=== PATIENT | male | born 1985 | race Caucasian/White ===

== ENCOUNTER 2021-05-05 10:53 | Outpatient (CLI) | payer OTHER, SELFPAY ==
[2021-05-05 11:54] LABS: SARS-CoV-2 RNA PCR Negative (Negative)
== END 2021-05-05 10:54 | disposition home or self-care (01) ==
PROVIDERS: PCP Physician Assistant; Visit Provider Physician Assistant
DX: Z20.822 Contact with and (suspected) exposure to COVID-19 (principal)
CPT/HCPCS: C9803; U0003; U0005

== ENCOUNTER 2024-07-23 07:40 | Outpatient (CLI) | payer OTHER, SELFPAY ==
--- NOTE | ~2024-07-23 | US_ITS ---
Abdominal Sonogram: Real-time sonographic imaging of the abdomen was performed. Clinical History: Abdominal pain Findings: The liver appears heterogeneous, with no evidence of mass lesion or bile duct dilatation. Main portal vein demonstrates normal direction of flow. The spleen is normal in size without evidence of focal lesion. The gallbladder is well distended, and appears normal with no evidence of gallston e or wall thickening. The common bile duct measures 4 mm. The visualized pancreas, aorta, and IVC ar e unremarkable. The right kidney measures 11.6 cm in length and the left kidney measures 11.1 cm. T here is no hydronephrosis or renal calculus. Impression: Heterogeneous hepatic echotexture could reflect fatty infiltration or possibly other chronic liver di sease. Reviewed, dictated and finalized at [facility]. [employer] Impression: Heterogeneous hepatic echotexture could reflect fatty infiltration or possibly other chronic liver disease.
--- OUTSIDE RECORDS SUMMARY | 2024-07-23 07:45 | XMS_ITS | Data Portability ---
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 Plan of Treatment Reminders Order Date Submit Date Provider Last Modified By Organization Details Last Modified Time Details Appointments None recorded . Lab CBC 2020 021 [facility], [address] [facility], [place], [address], 09:14:42 CMP, serum or plasma 2020 021 [facility], [address] [facility], [place], [address], 1 09:14:42 lipid panel, serum 2020 021 [facility], [address] [facility], [place], [address], 1 09:14:43 urinalys is, dipstick 2024 025 sha In-Office Order, Internal Use Only DO Not Attach Compendium DO Not Attach Compendium, Do Not Delete/merge, [id number] 5 11:17:48 CBC 2024 025 [facility], [address] [facility], [place], [address], 5 09:14:35 CMP, serum or plasma 2024 025 [facility], [address] [facility], [place], [address], 5 09:14:33 lipid panel, serum 2024 025 [facility], [address] [facility], [place], [address], 5 09:14:31 HbA1c (hemoglo bin A1c), blood 2024 025 [facility] In-Office Order, Internal Use Only DO Not Attach Compendium DO Not Attach Compendium, Do Not Delete/merge, [id number] 11:37:07 Referral None recorded . Procedures None recorded . Surgeries None recorded . Imaging CT, abdomen, w/o contrast [facility] [address], [place], [address], 5 13:20:08 Medication Orders sumatrip richard 50 mg tablet 2018 019 [facility], [address] [place] [address], [address], 1 12:07:19 Bactrim DS 800 mg-160 mg tablet 2018 019 [facility], [address] [place] [address], [address], 1 12:07:15 Patient TargetsNo targets recorded. Patient Instructions Encounter Date Encounter Id Patient Instructions Last Modified By Organization Details Last Modified Time 05/31/2017 [id number] discussed dietar y advice YOUNG eating. jnanney Not available 05/31/2017 10:40:43 06/28/2018 [id number] skin abscess: care instructions jnanney Not available 06/28/2018 15:26:11 07/18/2020 [id number] pilonidal abscess: care instructions jnann Not available 07/18/2020 13:06:26 06/14/2024 [id number] abdominal strain : rehab exercises jnanney Not available 06/14/2024 11:21:29 A healthy lifestyle: care instructions ey Not available 06/14/2024 11:21:29 frequent urination: care instructions anney Not available 06/14/2024 11:17:47 Reason for Referral None Reported. Results Created Date Observation Date Name Description Value Unit Range Abnormal Flag Note LastModifiedBy Organization Detail LastModifiedTime 05/13/20 17 05/14/2017 CBC WBC 8.1 x10e3 /uL 3.4-10 .8 Not Available [facility] ([facility]) [address] [place], [address], 05/18/2017 19:08:06 05/13/20 17 05/14/2017 CBC RBC 5.09 x10e6 /uL 4.14-5 .80 Not Available [facility] ([facility]) [address] [place], [address], 05/18/2017 19:08:06 05/13/20 17 05/14/2017 CBC hemoglobin 14.6 g/dL 12.6-1 7.7 Eff ectiv e Decem 2016 the refer ence inter rylee for Hemog lobin MALES only will be pirere ing to: Males 13-15 years : 12.6 - 17.7 Males >15 years : 13.0 - 17.7 Not Available [facility] ([facility]) [address] [place], [address], 05/18/2017 19:08:06 05/13/20 17 05/14/2017 CBC hematocrit 42.8 % 37.5-5 1.0 Not Available [facility] ([facility]) [address] [place], [address], 05/18/2017 19:08:06 05/13/20 17 05/14/2017 CBC MCV 84 fL 79-97 Not Available [facility] ([facility]) [address] [facility] [place], [address], 05/18/2017 19:08:06 05/13/20 17 05/14/2017 CBC MCH 28.7 pg 26.6-3 3.0 Not Available [facility] ([facility]) [address] [place], [place], [address], 05/18/2017 19:08:06 05/13/20 17 05/14/2017 CBC MCHC 34.1 g/dL 31.5-3 5.7 Not Available [facility] ([facility]) [address], [place], [address], 05/18/2017 19:08:06 05/13/20 17 05/14/2017 CBC RDW 13.7 % 12.3-1 5.4 Not Available [facility] ([facility]) [address] [facility], [place], [address], 05/18/2017 19:08:06 05/13/20 17 05/14/2017 CBC platelets 223 x10e3 /uL 150-37 9 Not Available [facility] ([facility]) [address] [place], [address], 05/18/2017 19:08:06 05/13/20 17 05/14/2017 CBC neutrophils 68 % not estab. Not Available [facility] ([facility]) [address] [facility], [place], [address], 05/18/2017 19:08:06 05/13/20 17 05/14/2017 CBC lymphs 19 % not estab. Not Available [facility] ([facility]) [address] [place], [address], 05/18/2017 19:08:06 05/13/20 17 05/14/2017 CBC monocytes 11 % not estab. Not Available [facility] ([facility]) [address] [facility] [place], [address], 05/18/2017 19:08:06 05/13/20 17 05/14/2017 CBC eos 2 % not estab. Not Available [facility] ([facility]) [address] [facility] [place], [address], 05/18/2017 19:08:06 05/13/20 17 05/14/2017 CBC basos 0 % not estab. 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 0 Not Available [facility] ([facility]) [address] [facility], [place], [address], 05/18/2017 19:08:06 05/13/20 17 05/14/2017 CBC lymphs (absolute) 1.5 x10e3 /uL 0.7-3. 1 Not Available [facility] ([facility]) [address] [facility], [place], [address], 05/18/2017 19:08:06 05/13/20 17 05/14/2017 CBC monocytes(ab solute) 0.9 x10e3 /uL 0.1-0. 9 Not Available [facility] ([facility]) [address] [place], [address], 05/18/2017 19:08:06 05/13/20 17 05/14/2017 CBC eos (absolute) 0.2 x10e3 /uL 0.0-0. 4 Not Available [facility] ([facility]) [address] [place], [address], 05/18/2017 19:08:06 05/13/20 17 05/14/2017 CBC baso (absolute) 0.0 x10e3 /uL 0.0-0. 2 Not Available [facility] ([facility]) [address] [place], [address], 05/18/2017 19:08:06 05/13/20 17 05/14/2017 CBC immature granulocytes 0 % not estab. Not Available [facility] ([facility]) [address] [place], [address], 05/18/2017 19:08:06 05/13/20 17 05/14/2017 CBC immature grans (abs) 0.0 x10e3 /uL 0.0-0. 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 Not Available [facility] ([facility]) [address] [facility], [place], [address], 05/18/2017 19:08:06 05/13/20 17 05/14/2017 CMP, serum or plasm a glucose, serum 107 mg/dL 65-99 above high normal Not Available [facility] ([facility]) [address] [place], [address], 05/18/2017 19:08:07 05/13/20 17 05/14/2017 CMP, serum or plasm a BUN 16 mg/dL 6-20 Not Available [facility] ([facility]) [address] [place], [address], 05/18/2017 19:08:07 05/13/20 17 05/14/2017 CMP, serum or plasm a creatinine, serum 0.87 mg/dL 0.76-1 .27 Not Available [facility] ([facility]) [address] [facility] [place], [address], 05/18/2017 19:08:07 05/13/20 17 05/14/2017 CMP, serum or plasm a eGFR if nonafricn AM 113 mL/mi n/1.7 3 >59 Not Available [facility] ([facility]) [address] [facility] [place], [address], 05/18/2017 19:08:07 05/13/20 17 05/14/2017 CMP, serum or plasm a eGFR if africn AM 130 mL/mi n/1.7 3 >59 Not Available [facility] ([facility]) [address] [facility], [place], [address], 05/18/2017 19:08:07 05/13/20 17 05/14/2017 CMP, serum or plasm a BUN/creatini ne ratio 18 9-20 Not Available [facility] ([facility]) [address] [place], [address], 05/18/2017 19:08:07 05/13/20 17 05/14/2017 CMP, serum or plasm a sodium, serum 141 mmol/ L 134-14 4 Not Available [facility] ([facility]) [address] [place], [address], 05/18/2017 19:08:07 05/13/20 17 05/14/2017 CMP, serum or plasm a potassium, serum 3.7 mmol/ L 3.5-5. 2 Not Available [facility] ([facility]) [address] [facility] [place], [address], 05/18/2017 19:08:07 05/13/20 17 05/14/2017 CMP, serum or plasm a chloride, serum 100 mmol/ L 96-106 Not Available [facility] ([facility]) [address] [place], [address], 05/18/2017 19:08:07 05/13/20 17 05/14/2017 CMP, serum or plasm a carbon dioxide, total 26 mmol/ L 18-29 Not Available [facility] ([facility]) [address] [facility] [place], [address], 05/18/2017 19:08:07 05/13/20 17 05/14/2017 CMP, serum or plasm a calcium, serum 9.0 mg/dL 8.7-10 .2 Not Available [facility] ([facility]) [address] [place], [address], 05/18/2017 19:08:07 05/13/20 17 05/14/2017 CMP, serum or plasm a protein, total, serum 7.5 g/dL 6.0-8. 5 Not Available [facility] ([facility]) [address] [place], [address], 05/18/2017 19:08:07 05/13/20 17 05/14/2017 CMP, serum or plasm a albumin, serum 4.4 g/dL 3.5-5. 5 Not Available [facility] ([facility]) [address] [place], [address], 05/18/2017 19:08:07 05/13/20 17 05/14/2017 CMP, serum or plasm a globulin, total 3.1 g/dL 1.5-4. 5 Not Available [facility] ([facility]) [address] [place], [address], 05/18/2017 19:08:07 05/13/20 17 05/14/2017 CMP, serum or plasm a A/G ratio 1.4 1.2-2. 2 Not Available [facility] ([facility]) [address] [place], [address], 05/18/2017 19:08:07 05/13/20 17 05/14/2017 CMP, serum or plasm a bilirubin, total 0.3 mg/dL 0.0-1. 2 Not Available [facility] ([facility]) [address] [facility] [place], [address], 05/18/2017 19:08:07 05/13/20 17 05/14/2017 CMP, serum or plasm a alkaline phosphatase, S 76 IU/L 39-117 Not Available [facility] ([facility]) [address] [facility] [place], [address], 05/18/2017 19:08:07 05/13/20 17 05/14/2017 CMP, serum or plasm a AST (SGOT) 24 IU/L 0-40 Not Available [facility] ([facility]) [address] [place], [address], 05/18/2017 19:08:07 05/13/20 17 05/14/2017 CMP, serum or plasm a ALT (SGPT) 27 IU/L 0-44 Not Available [facility] ([facility]) [address] [facility] [place], [address], 05/18/2017 19:08:07 05/13/20 17 05/14/2017 lipid panel , serum cholesterol, total 202 mg/dL 100-19 9 above high normal Not Available [facility] ([facility]) [address] [facility] [place], [address], 05/18/2017 19:08:08 05/13/20 17 05/14/2017 lipid panel , serum triglyceride s 144 mg/dL 0-149 Not Available [facility] ([facility]) [address] [facility] [place], [address], 05/18/2017 19:08:08 05/13/20 17 05/14/2017 lipid panel , serum HDL cholesterol 31 mg/dL >39 below low normal Not Available [facility] ([facility]) [address] [place], [address], 05/18/2017 19:08:08 05/13/20 17 05/14/2017 lipid panel , serum VLDL cholesterol clayton 29 mg/dL 5-40 Not Available [facility] ([facility]) [address] [place], [address], 05/18/2017 19:08:08 05/13/20 17 05/14/2017 lipid panel , serum LDL cholesterol calc 142 mg/dL 0-99 above high normal Not Available [facility] ([facility]) [address] [place], [address], 05/18/2017 19:08:08 05/13/20 17 05/14/2017 lipid panel , 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 6 above high normal LDL/H DL Ratio Men Women 1/2 Avg.R isk 1.0 1.5 Avg.R isk 3.6 3.2 2X Avg.R isk 6.2 5.0 3X Avg.R isk 8.0 6.1 Not Available [facility] ([facility]) [address] [place], [address], 05/18/2017 19:08:08 05/13/20 17 05/18/2017 cultu re, urine urine culture, routine Final report abnormal Not Available [facility] ([facility]) [address] [place], [address], 05/18/2017 19:08:08 05/13/20 17 05/18/2017 cultu re, urine result 1 Escher ichia coli abnormal Great er than 100,0 00 colon y formi ng units per mL Not Available [facility] ([facility]) [address] [place], [address], 05/18/2017 19:08:08 05/13/20 17 05/18/2017 cultu re, urine antimicrobia l susceptibili ty Commen t S = Susce ptibl e; I = Inter media te; R = Resis tant P = Posit zuleika; N = Negat zuleika MICS are expre ssed in micro grams per mL Antib iotic RSLT# 1 RSLT# 2 RSLT# 3 RSLT# 4 Amoxi cilli n/Cla vulan ic Acid S Ampic illin R Cefep mahsa S Ceftr iaxon e S Cefur oxime S Cepha lothi n S Cipro floxa marcy S Ertap enem S Genta micin S Imipe nem S Levof loxac in S Nitro furan toin S Piper acill in R Tetra cycli ne S Tobra mycin S Trime thopr im/Vaughn lfa R Not Available [facility] ([facility]) [address] [place], [address], 05/18/2017 19:08:08 05/13/20 17 05/18/2017 cardi ovasc zac assjoel sment panel , serum interpretati on Note Suppl rowan whittaker t is avail able. Not Available [facility] ([facility]) [address] [place], [address], 05/18/2017 19:08:09 05/13/20 17 05/18/2017 cardi ovasc ulcosme asses sment panel , serum pdf image . Not Available [facility] ([facility]) [address] [place], [address], 05/18/2017 19:08:09 07/18/19 21 07/19/2020 CMP, serum or plasm a glucose 98 mg/dL 65-99 Not Available [facility] ([facility]) [address] [place], [address], 07/19/2020 09:14:42 07/18/19 21 07/19/2020 CMP, serum or plasm a BUN 17 mg/dL 6-20 Not Available [facility] ([facility]) [address] [place], [address], 07/19/2020 09:14:42 07/18/19 21 07/19/2020 CMP, serum or plasm a creatinine 0.83 mg/dL 0.76-1 .27 Not Available [facility] ([facility]) [address] [facility] [place], [address], 07/19/2020 09:14:42 07/18/19 21 07/19/2020 CMP, serum or plasm a eGFR if nonafricn AM 112 mL/mi n/1.7 3 >59 Not Available [facility] ([facility]) [address] [facility] [place], [address], 07/19/2020 09:14:42 07/18/19 21 07/19/2020 CMP, serum or plasm a eGFR if africn AM 130 mL/mi n/1.7 3 >59 Not Available [facility] ([facility]) [address] [place], [address], 07/19/2020 09:14:42 07/18/19 21 07/19/2020 CMP, serum or plasm a BUN/creatini ne ratio 20 9-20 Not Available [facility] ([facility]) [address] [place], [address], 07/19/2020 09:14:42 07/18/1907/19/2020 CMP, serum or plasm a sodium 141 mmol/ L 134-14 4 Not Available [facility] ([facility]) [address] [place], [address], 07/19/2020 09:14:42 07/18/1907/19/2020 CMP, serum or plasm a potassium 4.1 mmol/ L 3.5-5. 2 Not Available [facility] ([facility]) [address] [place], [address], 07/19/2020 09:14:42 07/18/19 07/19/2020 CMP, serum or plasm a chloride 103 mmol/ L 96-106 Not Available [facility] ([facility]) [address] [place], [address], 07/19/2020 09:14:42 07/18/1907/19/2020 CMP, serum or plasm a carbon dioxide, total 25 mmol/ L 20-29 Not Available [facility] ([facility]) [address] [place], [address], 07/19/2020 09:14:42 07/18/19 21 07/19/2020 CMP, serum or plasm a calcium 9.3 mg/dL 8.7-10 .2 Not Available [facility] ([facility]) [address] [place], [address], 07/19/2020 09:14:42 07/18/1907/19/2020 CMP, serum or plasm a protein, total 7.5 g/dL 6.0-8. 5 Not Available [facility] ([facility]) [address] [place], [address], 07/19/2020 09:14:42 07/18/1907/19/2020 CMP, serum or plasm a albumin 4.5 g/dL 4.0-5. 0 Not Available [facility] ([facility]) [address] [place], [address], 07/19/2020 09:14:42 07/18/1907/19/2020 CMP, serum or plasm a globulin, total 3.0 g/dL 1.5-4. 5 Not Available [facility] ([facility]) [address] [place], [address], 07/19/2020 09:14:42 07/18/1907/19/2020 CMP, serum or plasm a A/G ratio 1.5 1.2-2. 2 Not Available [facility] ([facility]) [address] [facility] [place], [address], 07/19/2020 09:14:42 07/18/19 21 07/19/2020 CMP, serum or plasm a bilirubin, total 0.4 mg/dL 0.0-1. 2 Not Available [facility] ([facility]) [address] [facility] [place], [address], 07/19/2020 09:14:42 07/18/19 21 07/19/2020 CMP, serum or plasm a alkaline phosphatase 69 IU/L 39-117 Not Available [facility]) [address] [facility] [place], [address], 07/19/2020 09:14:42 07/18/19 21 07/19/2020 CMP, serum or plasm a AST (SGOT) 23 IU/L 0-40 Not Available [facility] ([facility]) [address] [place], [address], 07/19/2020 09:14:42 07/18/19 21 07/19/2020 CMP, serum or plasm a ALT (SGPT) 25 IU/L 0-44 Not Available [facility] ([facility]) [address] [place], [address], 07/19/2020 09:14:42 07/18/1907/19/2020 CBC WBC 8.4 x10e3 /uL 3.4-10 .8 Not Available [facility] ([facility]) [address] [place], [address], 07/19/2020 09:14:42 07/18/19 21 07/19/2020 CBC RBC 5.54 x10e6 /uL 4.14-5 .80 Not Available [facility] ([facility]) [address] [place], [address], 07/19/2020 09:14:42 07/18/19 21 07/19/2020 CBC hemoglobin 15.9 g/dL 13.0-1 7.7 Not Available [facility] ([facility]) [address] [facility] [place], [address], 07/19/2020 09:14:42 07/18/19 21 07/19/2020 CBC hematocrit 48.1 % 37.5-5 1.0 Not Available [facility] ([facility]) [address] [facility], [place], [address], 07/19/2020 09:14:42 07/18/19 21 07/19/2020 CBC MCV 87 fL 79-97 Not Available [facility] ([facility]) [address] [place], [address], 07/19/2020 09:14:42 07/18/19 21 07/19/2020 CBC MCH 28.7 pg 26.6-3 3.0 Not Available [facility] ([facility]) [address] [place], [address], 07/19/2020 09:14:42 07/18/19 21 07/19/2020 CBC MCHC 33.1 g/dL 31.5-3 5.7 Not Available [facility] ([facility]) [address] [facility], [place], [address], 07/19/2020 09:14:42 07/18/19 21 07/19/2020 CBC RDW 12.5 % 11.6-1 5.4 Not Available [facility] ([facility]) [address] [place], [address], 07/19/2020 09:14:42 07/18/19 21 07/19/2020 CBC platelets 231 x10e3 /uL 150-45 0 Not Available [facility] ([facility]) [address] [place], [address], 07/19/2020 09:14:42 07/18/19 21 07/19/2020 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 Not Available [facility] ([facility]) [address] [facility], [place], [address], 07/19/2020 09:14:42 07/18/19 21 07/19/2020 lipid panel , serum cholesterol, total 187 mg/dL 100-19 9 Not Available [facility] ([facility]) [address] [facility], [place], [address], 07/19/2020 09:14:43 07/18/19 21 07/19/2020 lipid panel , serum triglyceride s 163 mg/dL 0-149 above high normal Not Available [facility] ([facility]) [address] [facility], [place], [address], 07/19/2020 09:14:43 07/18/19 21 07/19/2020 lipid panel , serum HDL cholesterol 34 mg/dL >39 below low normal Not Available [facility] ([facility]) [address] [facility], [place], [address], 07/19/2020 09:14:43 07/18/19 21 07/19/2020 lipid panel , serum VLDL cholesterol clayton 29 mg/dL 5-40 Not Available [facility] ([facility]) [address] [facility], [place], [address], 07/19/2020 09:14:43 07/18/19 21 07/19/2020 lipid panel , serum LDL chol calc ([facility]) 124 mg/dL 0-99 above high normal Not Available [facility] ([facility]) [address] [place], [address], 07/19/2020 09:14:43 07/18/19 21 07/19/2020 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 Pleas e revie w this repor t in its entir ety, since pierre es to dorothy dominguez demog raphi cs may affec t resul t inter preta tion( s) and/o r treat ment/ follo w-up sugge stion s. Suppl ement al repor t is avail able. Not Available [facility] ([facility]) [address] [facility], [place], [address], 07/19/2020 09:14:44 07/18/19 21 07/19/2020 cardi ovasc ular asses sment panel , serum pdf . Not Available [facility] ([facility]) [address] [facility], [place], [address], 07/19/2020 09:14:44 06/14/19 25 06/15/2024 LIPID PANEL cholesterol, total 139 mg/dL 100-19 9 Not Available [address], [address], 06/15/2024 09:14:31 06/14/19 25 06/15/2024 LIPID PANEL triglyceride s 278 mg/dL 0-149 above high normal Not Available [address], [address], 06/15/2024 09:14:31 06/14/19 25 06/15/2024 LIPID PANEL HDL cholesterol 26 mg/dL >39 below low normal Not Available [facility] [address] [place], [address], 06/15/2024 09:14:31 06/14/19 25 06/15/2024 LIPID PANEL VLDL cholesterol clayton 45 mg/dL 5-40 above high normal Not Available [facility] [address] [place], [address], 06/15/2024 09:14:31 06/14/19 25 06/15/2024 LIPID PANEL LDL chol calc ([facility]) 68 mg/dL 0-99 Not Available [address], [address], 06/15/2024 09:14:31 06/14/19 25 06/15/2024 COMP. METAB OLIC PANEL (14) glucose 108 mg/dL 70-99 above high normal Not Available [address], [address], 06/15/2024 09:14:33 06/14/19 25 06/15/2024 COMP. METAB OLIC PANEL (14) BUN 14 mg/dL 6-24 Not Available [address], [address], 06/15/2024 09:14:33 06/14/19 25 06/15/2024 COMP. METAB OLIC PANEL (14) creatinine 0.79 mg/dL 0.76-1 .27 Not Available [address], [address], 06/15/2024 09:14:33 06/14/19 25 06/15/2024 COMP. METAB OLIC PANEL (14) eGFR 114 mL/mi n/1.7 3 >59 Not Available [address], [address], 06/15/2024 09:14:33 06/14/19 25 06/15/2024 COMP. METAB OLIC PANEL (14) BUN/creatini ne ratio 18 9-20 Not Available [address], [address], 06/15/2024 09:14:33 06/14/19 25 06/15/2024 COMP. METAB OLIC PANEL (14) sodium 142 mmol/ L 134-14 4 Not Available [address], [address], 06/15/2024 09:14:33 06/14/19 25 06/15/2024 COMP. METAB OLIC PANEL (14) potassium 4.1 mmol/ L 3.5-5. 2 Not Available [address], [address], 06/15/2024 09:14:33 06/14/19 25 06/15/2024 COMP. METAB OLIC PANEL (14) chloride 103 mmol/ L 96-106 Not Available [address], [address], 06/15/2024 09:14:33 06/14/19 25 06/15/2024 COMP. METAB OLIC PANEL (14) carbon dioxide, total 25 mmol/ L 20-29 Not Available [address], [address], 06/15/2024 09:14:33 06/14/1906/15/2024 COMP. METAB OLIC PANEL (14) calcium 8.6 mg/dL 8.7-10 .2 below low normal Not Available [address], [address], 06/15/2024 09:14:33 06/14/1906/15/2024 COMP. METAB OLIC PANEL (14) protein, total 6.6 g/dL 6.0-8. 5 Not Available [address], [address], 06/15/2024 09:14:33 06/14/1906/15/2024 COMP. METAB OLIC PANEL (14) albumin 4.2 g/dL 4.1-5. 1 Not Available [address], [address], 06/15/2024 09:14:33 06/14/19 25 06/15/2024 COMP. METAB OLIC PANEL (14) globulin, total 2.4 g/dL 1.5-4. 5 Not Available [address], [address], 06/15/2024 09:14:33 06/14/19 25 06/15/2024 COMP. METAB OLIC PANEL (14) bilirubin, total 0.2 mg/dL 0.0-1. 2 Not Available [address], [address], 06/15/2024 09:14:33 06/14/1906/15/2024 COMP. METAB OLIC PANEL (14) alkaline phosphatase 71 IU/L 44-121 Not Available [address], [address], 06/15/2024 09:14:33 06/14/19 25 06/15/2024 COMP. METAB OLIC PANEL (14) AST (SGOT) 28 IU/L 0-40 Not Available [address], [address], 06/15/2024 09:14:33 06/14/19 25 06/15/2024 COMP. METAB OLIC PANEL (14) ALT (SGPT) 31 IU/L 0-44 Not Available [address], [address], 06/15/2024 09:14:33 06/14/1906/15/2024 CARDI NARINDER Epstein interpretati on Note Suppl rowan reese is avail able. Not Available [address], [address], 06/15/2024 09:14:35 01/08/02 2406/15/2024 GOPAL Epstein pdf . Not Available [address], [address], 06/15/2024 09:14:35 06/14/1906/15/2024 CBC, PLATE LET, NO DIFFE RENTI AL WBC 5.5 x10e3 /uL 3.4-10 .8 Not Available [address], [address], 06/15/2024 09:14:35 06/14/1906/15/2024 CBC, PLATE LET, NO DIFFE RENTI AL RBC 5.10 x10e6 /uL 4.14-5 .80 Not Available [address], [address], 06/15/2024 09:14:35 06/14/1906/15/2024 CBC, PLATE LET, NO DIFFE RENTI AL hemoglobin 14.4 g/dL 13.0-1 7.7 Not Available [address], [address], 06/15/2024 09:14:35 06/14/1906/15/2024 CBC, PLATE LET, NO DIFFE RENTI AL hematocrit 44.8 % 37.5-5 1.0 Not Available [address], [address], 06/15/2024 09:14:35 06/14/1906/15/2024 CBC, PLATE LET, NO DIFFE RENTI AL MCV 88 fL 79-97 Not Available [address], [address], 06/15/2024 09:14:35 06/14/1906/15/2024 CBC, PLATE LET, NO DIFFE RENTI AL MCH 28.2 pg 26.6-3 3.0 Not Available [address], [address], 06/15/2024 09:14:35 06/14/1906/15/2024 CBC, PLATE LET, NO DIFFE RENTI AL MCHC 32.1 g/dL 31.5-3 5.7 Not Available [address], [address], 06/15/2024 09:14:35 06/14/19 25 06/15/2024 CBC, PLATE LET, NO DIFFE RENTI AL RDW 12.7 % 11.6-1 5.4 Not Available [address], [address], 06/15/2024 09:14:35 06/14/1906/15/2024 CBC, PLATE LET, NO DIFFE RENTI AL platelets 237 x10e3 /uL 150-45 0 Not Available [address], [address], 06/15/2024 09:14:35 06/14/1906/14/2024 HbA1c (hemo globi n A1c), blood HbA1c 6.0 Not Available In-Office Order Internal Use Only DO Not Attach Compendium DO Not Attach Compendium, Do Not Delete/merge, 06/14/2024 11:22:27 06/14/1906/14/2024 urina lysis , dipst ick Leukocytes Negati ve Not Available In-Office Order Internal Use Only DO Not Attach Compendium DO Not Attach Compendium, Do Not Delete/merge, 06/14/2024 11:06:29 06/14/19 25 06/14/2024 urina lysis , dipst ick Nitrite negati ve Not Available In-Office Order Internal Use Only DO Not Attach Compendium DO Not Attach Compendium, Do Not Delete/merge, 06/14/2024 11:06:29 06/14/19 25 06/14/2024 urina lysis , dipst ick Urobilinogen .2 Not Available In-Of fice Order Internal Use Only DO Not Attach Compendium DO Not Attach Compendium, Do Not Delete/merge, 06/14/2024 11:06:29 06/14/19 25 06/14/2024 urina lysis , dipst ick Protein Negati ve Not Available In-Office Order Internal Use Only DO Not Attach Compendium DO Not Attach Compendium, Do Not Delete/merge, 06/14/2024 11:06:29 06/14/19 25 06/14/2024 urina lysis , dipst ick pH 6.0 Not Available In-Office Order Internal Use Only DO Not Attach Compendium DO Not Attach Compendium, Do Not Delete/merge, 06/14/2024 11:06:29 06/14/19 25 06/14/2024 urina lysis , dipst ick Blood Negati ve Not Available In-Office Order Internal Use Only DO Not Attach Compendium DO Not Attach Compendium, Do Not Delete/merge, 06/14/2024 11:06:29 06/14/19 25 06/14/2024 urina lysis , dipst ick Specific [place] 1.015 Not Available In-Off ice Order Internal Use Only DO Not Attach Compendium DO Not Attach Compendium, Do Not Delete/merge, 06/14/2024 11:06:29 06/14/19 25 06/14/2024 urina lysis , dipst ick Ketone Negati ve Not Available In-Office Order Internal Use Only DO Not Attach Compendium DO Not Attach Compendium, Do Not Delete/merge, 06/14/2024 11:06:29 06/14/19 25 06/14/2024 urina lysis , dipst ick Bilirubin Negati ve Not Available In-Office Order Internal Use Only DO Not Attach Compendium DO Not Attach Compendium, Do Not Delete/merge, 06/14/2024 11:06:29 06/14/19 25 06/14/2024 urina lysis , dipst ick Glucose Negati ve Not Available In-Office Order Internal Use Only DO Not Attach Compendium DO Not Attach Compendium, Do Not Delete/merge, [id number] 06/14/2024 11:06:29 06/14/19 25 06/14/2024 urina lysis , dipst ick Appearance Clear Not Available In-Offi ce Order Internal Use Only DO Not Attach Compendium DO Not Attach Compendium, Do Not Delete/merge, [id number] 06/14/2024 11:06:29 06/14/19 25 06/14/2024 urina lysis , dipst ick Color Yellow Not Available In-Office Order Internal Use Only DO Not Attach Compendium DO Not Attach Compendium, Do Not Delete/merge, [id number] 06/14/2024 11:06:29 Result Notes None recorded. Problems Name Problem SNOMED Code Status Onset Date Resolution Date Notes Provider Name and Address Organization Details Recorded Time Melena due to gastrointestin al hemorrhage 906097678 Active Mariana Fried PA-C Attn: [facility] [facility], [place], [address], [facility] 6 15:14:32 Problem Notes None recorded. Medical Equipment None Reported. Allergies No known drug allergies Medications Name Sig Start Date Stop Date Status Note LastModified by Organization Details LastModified Time ibuprofen 800 mg tablet 07/18 completed Not Available Not Available Not Available hydrocodone 5 mg-acetamin ophen 325 mg tablet 05/13 completed Not Available Not Available Not Available sumatriptan 50 mg tablet Take 1 tablet by oral route as directed for 10 days. 07/18 completed Not Available Not Available Not Available ciprofloxac in 500 mg tablet Take 1 tablet every 12 hours by oral route for 10 days. 05/31 completed Not Available Not Available Not Available amoxicillin 875 mg tablet 05/13 completed Not Available Not Available Not Available Bactrim DS 800 mg-160 mg tablet Take 1 tablet every 12 hours by oral route for 10 days. 07/18 completed Not Available Not Available Not Available Vitals Date Recorded Body height Body mass index (BMI) Body weight Oxygen saturation Oxygen saturation in Arterial blood by Pulse oximetry Heart rate Systolic blood pressure Diastolic blood pressure Provider Name and Address Organization Details Last Updated DateTime 7 175.26 cm 38.4 kg/m2 942975. 02 g 96 % 96 % 74 /min 112 mm[Hg] 68 mm[Hg] Viki Moya MA [facility] 7 10:15:27 Date Recorded Body height Body mass index (BMI) Body weight Oxygen saturation Oxygen saturation in Arterial blood by Pulse oximetry Heart rate Systolic blood pressure Diastolic blood pressure Provider Name and Address Organization Details Last Updated DateTime 9 175.26 cm 38.1 kg/m2 594423. 83 g 97 % 97 % 79 /min 134 mm[Hg] 82 mm[Hg] Viki Moya MA [facility] 9 15:02:50 Date Recorded Body height Body temperature Oxygen saturation Oxygen saturation in Arterial blood by Pulse oximetry Heart rate Systolic blood pressure Diastolic blood pressure Provider Name and Address Organization Details Last Updated DateTime 1 175.26 cm 97.7 [degF] 96 % 96 % 65 /min 96 mm[Hg] 72 mm[Hg] Avis Paez MA [facility] 1 12:10:00 Date Recorded Body weight Body mass index (BMI) Body height Oxygen saturation Oxygen saturation in Arterial blood by Pulse oximetry Heart rate Systolic blood pressure Diastolic blood pressure Provider Name and Address Organization Details Last Updated DateTime 5 910600. 12 g 38.3 kg/m2 175.26 cm 98 % 98 % 72 /min 119 mm[Hg] 80 mm[Hg] Jessica Dowd MA [facility] 5 11:06:02 Date Recorded Body height Body mass index (BMI) Body weight Oxygen saturation Oxygen saturation in Arterial blood by Pulse oximetry Heart rate Systolic blood pressure Diastolic blood pressure Provider Name and Address Organization Details Last Updated DateTime 5 175.26 cm 36.8 kg/m2 062339. 6 g 98 % 98 % 78 /min 122 mm[Hg] 92 mm[Hg] Jessica Dowd MA [facility] 5 12:00:50 Social History Question Answer Notes LastModified by Organizat ion Details LastModified Time Tobacco Smoking Status Former Smoker Jessica Dowd MA null, [facility] 06/14/2024 11:04:28 What Is Your Level Of Alcohol Consumption? Occasional Information not available 07/18/2020 What Is Your Level Of Caffeine Consumption? Moderate Information not available 07/18/2020 What Type Of Diet Are You Following? REGULAR Information not available 07/18/2020 Do You Or Have You Ever Used E-cigarettes Or Vape? Never Used Electronic Cigarettes Information not available 07/18/2020 What Is Your Occupation? [employer] Information not available 07/18/2020 Marital Status [email or web address] Informat[employer] on not available 07/18/2020 What Was The Date Of Your Most Recent Tobacco Screening? 06/25/2024 Information not available 06/25/2024 Do You Or Have You Ever Used Smokeless Tobacco? Never Used Smokeless Tobacco Information not available 07/18/2020 How Much Tobacco Do You Smoke? 0.25 PPD Information not available 10/06/2015 General Stress Level Medium Information not available 07/18/2020 On What Date Was Tobacco Cessation Counseling Provided? 06/25/2024 Information not available 06/25/2024 How Many Years Have You Smoked Tobacco? 5 Information not available 10/06/2015 Sex: Male Functional Status None recorded. Mental Status None recorded. Family History Relationship Description Onset Age of this Age Resolved Age Notes LastModified by Organization Details LastModified Time Mother Kidney disease [email or web address] Not available 09/12 14:28:00 Father Hypertensive disorder [email or web address] Not available 09/12 14:28:00 Medical History Condition Response Coronary Artery Disease N Other N High Blood Pressure N Atrial Fibrillation N Kidney or Bladder Problems N Thyroid Problems N GI Problems N Depression N COPD N Blood Clots N Skin Problems N Anemia N Heart Attack ([place]) N Anxiety Disorder N Diabetes N Muscle, Joint, or Bone Problems N Seizures/Epilepsy N Acid Reflux (GERD) N Cancer N Stroke N Asthma N Allergies N High Cholesterol N Hepatitis N Liver Disease N Headaches N Heart Failure N Osteoporosis N Past Encounters Encounter ID Performer Location Encounter Start Date Encounter Closed Date Diagnosis/Indication Diagnosis SNOMED-CT Code Diagnosis ICD10 Code Diagnosis Note [id number] [facility] [address] [place] [address] 10/06/2015 14:14:38 10/06/2015 15:21:13 Melena due to gastrointestinal hemorrhage 380785465 K92.1 [id number] Mariana Fried PA-C [facility] [address] [place] [address] 05/13/2017 10:02:40 05/13/2017 12:17:51 Urinary tract infectious disease 95071015 N39.0 Body mass index 30+ - obesity 362364688 Z68.39 [id number] Mariana Fried PA-C [facility] [address] [place] [address] 05/31/2017 10:10:51 05/31/2017 12:30:16 [id number] Faye Laboy [facility] [address] [place] [address] 06/28/2018 14:39:03 06/28/2018 16:09:54 Headache associated with sexual activity 315234241 G44.82 Cellulitis and abscess of trunk 043365832 L02.182 [id number] Mariana Fried PA-C [facility] [address] [place] [address] 07/18/2020 11:56:37 07/18/2020 15:26:32 Pain of right shoulder joint 9235075781 7414614 M25.511 Pilonidal cyst 15057194 L05.91 Atypical chest pain 1025 68733 R07.89 [id number] Mariana Fried PA-C [facility] [address] [place] [address] 06/14/2024 10:57:25 06/18/2024 08:24:38 Increased frequency of urination 457882524 R35.0 Right uppe r quadrant pain 141036764 R10.11 Strain of abdominal muscle 658148563 S39.011A Overweight 331432795 E66 .3 [id number] [facility] [address] [place] [address] 06/25/2024 11:40:08 06/28/2024 16:21:09 Right upper quadrant pain 322580240 R10.11 Hepatosplenomegaly 78417 000 R16.2 Health Concerns Section Related Observation LastModified by Organization Detai ls LastModified Time None Recorded Concern Status LastModified by Organization Details LastModified Time None Recorded Advance Directives Directive None Recorded Payers Encounter Date Sequence Insurance Name Policy Number Policy Sebastian Covered Member ID Sebastian Member ID Guarantor Name 05/31/2017 1 [facility] [id number] Loc Leon [id number] [facility] 06/28/2018 1 [place] [id number] Loc Leon [id number] [facility] 07/18/2020 1 [place] [id number] Loc Leon [id number] [facility] 06/14/2024 1 [employer] - OPEN ACCESS PLUS [id number] Sd Mccabe [id number] [facility] 06/25/2024 1 [employer] - OPEN ACCESS [employer]US [id number] Sd Mccabe [id number] [facility] Notes Date Note Type Note Provider Name and Address Organization Details Recorded Time 05/31/2017 text/html lab results. see lipid and bs. uti is better Mariana Fried PA-C Attn: [facility] [facility], [place], [address], [facility] 05/31/2017 10:41:45 06/28/2018 text/html Headaches during sex started about 2 weeks ago. Has occurred 3 times during sex. 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 Reports h/o bone spur and tensions headaches. States these headaches are in the same spot as previous tension headaches just much worse. Reports headaches begin right at the end of sex. Reports taking ibuprofen, no relief. States the headaches last for 30 minutes, but then has dull headache for next day or two. Denies vision changes. Reports he also has infection on his R groin for over a year - started a pimple, but then went away. Reports has gotten larger, will pop with yellow discharge and very tender. Tried Neosporin which helped clear it faster but still came back. No history of STD or possible exposure. ARLENE Cortes, [place] - [facility] 06/28/2018 16:06:17 07/18/2020 text/html Patient has been having abdominal for the last few months. He originated it to him drinking monsters of which her stopped drinking monster. He describes it as a dull ache a 2/10 that lasts about a day. The patient recently has had a lot of stress recently by having home renovations in addition to his children doing school from home. ibuprofen 400-600 mg will alleviate this pain.He also complains of R shoulder pain which radiates to his neck. If he sleeps on it he will be awoken with the pain. This has been ongoing for a while. He has had an MRI which showed bone spurs and a small tear. He was given an injection of cortisone injection which relieved his pain for a while. When he reaches over his head it exacerbates his pain. When he gets the pain he takes ibuprofen 800 mg 2x daily.Lastly he mentions a boil on his waist line for the last 2 years. The patient reports that it originated as a pimple which he irritated He has been seen here once for it before. At that time he as tx with antibiotics which then it resolved which he describes as a closed hole. It has come and gone at least 15-20 times. He states when it is active he will irritate it and sometimes pop it which will leak pus and blood. When it has resolved the patient also picks at the scab which occasionally causes it to arise. Denies any history of trauma/injury to the area. He has a similar boil on the top of his tail bone for >2 years. He popped that one himself and it has never fully resolved.Father has a history of [place] at 62 y/o and had 4-5 stents placed. 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 Mariana Fried PA-C Attn: [employer],[address] [place], [address], [facility] - [facility] 06/25/2024 12:10:51
== END 2024-07-23 07:41 | disposition home or self-care (01) ==
LOC: CHSIMG 07:43
PROVIDERS: PCP Physician Assistant; Visit Provider Physician Assistant
DX: R10.11 Right upper quadrant pain (principal)
CPT/HCPCS: 76700

== ENCOUNTER 2024-08-13 09:06 | Outpatient (CLI) | payer OTHER, SELFPAY | END 2024-08-13 09:07 | disposition home or self-care (01) | LOC: CHSIMG 09:09 | PROVIDERS: PCP Physician Assistant | DX: R10.11 Right upper quadrant pain (principal) | CPT/HCPCS: 78227; A9537; J2805 ==

== ENCOUNTER 2024-09-03 10:55 | Outpatient (CLI) | payer OTHER, SELFPAY ==
--- NOTE | ~2024-09-03 | XR_ITS ---
EXAMINATION: XR shoulder RT min 2V DATE: 09/03/2024 11:07 INDICATION: Right shoulder pain. TECHNIQUE: 4 views of right shoulder were obtained. COMPARISON: None. FINDINGS: Alignment is normal. No fracture. There is mild osteoarthritis of acromioclavicular joint a nd glenohumeral joint characterized by tiny osteophytes. IMPRESSION: 1. Mild polyarticular osteoarthritis. Reviewed, dictated and finalized at location A.
--- OUTSIDE RECORDS SUMMARY | 2024-09-03 12:58 | XMS_ITS | Data Portability ---
[facility] Address [address] [place] [address] Care Team Providers Care License Distributor Name Role Phone MARIANA FRIED Primary Care Provider Assessment No assessment recorded. Plan of Treatment Reminders Order Date Submit Date Provider Last Modified By Organization Details Last Modified Time Details Appointments ANY 15 2024 09:45A M Mariana Fried PA-C Not available Not available Not available Lab urinaly sis, dipstic k 2024 025 sha In-Office Order, Internal Use Only DO Not Attach Compendium DO Not Attach Compendium, Do Not Delete/merge, [id number] 06/14/2024 11:17:48 CBC 2024 025 [facility], [address], [address], 06/15/2024 09:14:35 CMP, serum or plasma 2024 025 [facility], 102 [facility] 2, [place], [address], 06/15/2024 09:14:33 lipid panel, serum 2024 025 [facility], 102 [facility], [facility] 2, [place], [address], 06/15/2024 09:14:31 HbA1c (hemogl obin A1c), blood 2024 025 [facility] In-Office Order, Internal Use Only DO Not Attach Compendium DO Not Attach Compendium, Do Not Delete/merge, [id number] 06/14/2024 11:37:07 CBC 2020 021 [facility], [address] [place] [address], [place], [address], 07/19/2020 09:14:42 CMP, serum or plasma 2020 021 [facility], [address] [place] [address] 2, [place], [address], 07/19/2020 09:14:42 lipid panel, serum 2020 021 [facility], [address] [place] [address] 2, [place], [address], 07/19/2020 09:14:43 Referral physica l therapi st referra l 2024 025 [facility], [address] [place] [address], [id number], 08/31/2024 11:40:35 Procedures None recorde d. Surgeries None recorde d. Imaging XR, shoulde r, 2 or more view [address] [facility] (Registration ), [address] [place], [address], 08/31/2024 11:20:44 CT, abdomen , w/o contras t 2024 [email or web address], [address], [place], [address], 07/11/2024 13:20:08 Medication Orders pantopr azole 40 mg tablet, delayed release 2024 025 [facility], [address], [place], [address], 08/31/2024 11:10:52 celecox ib 200 mg capsule 2024 025 [facility], [address], [place], [address], 08/31/2024 11:10:52 sumatri ptan 50 mg tablet 2018 019 [facility], [address] [place] [address], [id number], 07/18/2020 12:07:19 Bactrim DS 800 mg-160 mg tablet 2018 019 [facility], [address] [place] [address], [id number], 07/18/2020 12:07:15 Patient TargetsNo targets recorded. Patient Instructions Encounter Date Encounter Id Patient Instructions Last Modified By Organization Details Last Modified Time 06/28/2018 [id number] skin abscess: care instructions [facility] Not available 06/28/2018 15:26:11 07/18/2020 [id number] pilonidal abscess: care instructions jnanney Not available 07/18/2020 13:06:26 06/14/2024 [id number] abdominal strain : rehab exercises jnanney Not available 06/14/2024 11:21:29 A healthy lifestyle: care instructions jnanney Not available 06/14/2024 11:21:29 frequent urination: care instructions anney Not available 06/14/2024 11:17:47 Reason for Referral Physical Therapist Referral for Pain of right shoulder joint Referring Physician: Mariana Fried, Family Medicine, Encounter Date: 08/31/2024 Results Created Date Observation Date Name Description Value Unit Range Abnormal Flag Note LastModifiedBy Organization Detail LastModifiedTime 07/18/1907/19/2020 CMP, serum or plasm a glucose 98 mg/dL 65-99 Not Available [facility] ([facility]) [address] [facility], [place], [address], 07/19/2020 09:14:42 07/18/1907/1907/19/2020 CMP, serum or plasm a BUN 17 mg/dL 6-20 Not Available [facility] ([facility]) [address] [facility] [place], [address], 07/19/2020 09:14:42 07/18/19 21 07/19/2020 CMP, serum or plasm a creatinine 0.83 mg/dL 0.76-1 .27 Not Available [facility] ([facility]) [address] [facility] [place], [address], 07/19/2020 09:14:42 07/18/19 21 07/19/2020 CMP, serum or plasm a eGFR if nonafricn AM 112 mL/mi n/1.7 3 >59 Not Available [facility] ([facility]) [address] [facility] [place], [address], 07/19/2020 09:14:42 07/18/19 21 07/19/2020 CMP, serum or plasm a eGFR if africn AM 130 mL/mi n/1.7 3 >59 Not Available [facility] ([facility]) [address] [place], [address], 07/19/2020 09:14:42 07/18/19 21 07/19/2020 CMP, serum or plasm a BUN/creatini ne ratio 20 9-20 Not Available [facility] ([facility]) [address] [place], [address], 07/19/2020 09:14:42 07/18/19 21 07/19/2020 CMP, serum or plasm a sodium 141 mmol/ L 134-14 4 Not Available [facility] ([facility]) [address] [place], [address], 07/19/2020 09:14:42 07/18/19 21 07/19/2020 CMP, serum or plasm a potassium 4.1 mmol/ L 3.5-5. 2 Not Available [facility] ([facility]) [address] [facility] [place], [address], 07/19/2020 09:14:42 07/18/1907/19/2020 CMP, serum or plasm a chloride 103 mmol/ L 96-106 Not Available [facility] ([facility]) [address] [facility] [place] [address], 07/19/2020 09:14:42 07/18/19 21 07/19/2020 CMP, serum or plasm a carbon dioxide, total 25 mmol/ L 20-29 Not Available [facility] ([facility]) [address] [facility] [place], [address], 07/19/2020 09:14:42 07/18/19 21 07/19/2020 CMP, serum or plasm a calcium 9.3 mg/dL 8.7-10 .2 Not Available [facility] ([facility]) [address] [facility] [place], [address], 07/19/2020 09:14:42 07/18/1907/19/2020 CMP, serum or plasm a protein, total 7.5 g/dL 6.0-8. 5 Not Available [facility] ([facility]) [address] [facility] [place], [address], 07/19/2020 09:14:42 07/18/1907/19/2020 CMP, serum or plasm a albumin 4.5 g/dL 4.0-5. 0 Not Available [facility] ([facility]) [address] [facility] [place], [address], 07/19/2020 09:14:42 07/18/19 21 07/19/2020 CMP, serum or plasm a globulin, total 3.0 g/dL 1.5-4. 5 Not Available [facility] ([facility]) [address] [facility] [place], [address], 07/19/2020 09:14:42 07/18/19 21 07/19/2020 CMP, serum or plasm a A/G ratio 1.5 1.2-2. 2 Not Available [facility] ([facility]) [address] [facility] [place], [address], 07/19/2020 09:14:42 07/18/19 21 07/19/2020 CMP, serum or plasm a bilirubin, total 0.4 mg/dL 0.0-1. 2 Not Available [facility] ([facility]) [address] [facility] [place], [address], 07/19/2020 09:14:42 07/18/19 21 07/19/2020 CMP, serum or plasm a alkaline phosphatase 69 IU/L 39-117 Not Available [facility] ([facility]) [address] [facility], [place], [address], 07/19/2020 09:14:42 07/18/19 21 07/19/2020 CMP, serum or plasm a AST (SGOT) 23 IU/L 0-40 Not Available [facility] ([facility]) [address] [facility] [place], [address], 07/19/2020 09:14:42 07/18/19 21 07/19/2020 CMP, serum or plasm a ALT (SGPT) 25 IU/L 0-44 Not Available [facility] ([facility]) [address] [facility] [place], [address], 07/19/2020 09:14:42 07/18/19 21 07/19/2020 CBC WBC 8.4 x10e3 /uL 3.4-10 .8 Not Available [facility] ([facility]) [address] [facility] [place], [address], 07/19/2020 09:14:42 07/18/19 21 07/19/2020 CBC RBC 5.54 x10e6 /uL 4.14-5 .80 Not Available [facility] ([facility]) [address] [facility] [place], [address], 07/19/2020 09:14:42 07/18/19 21 07/19/2020 CBC hemoglobin 15.9 g/dL 13.0-1 7.7 Not Available [facility] ([facility]) [address] [facility] [place], [address], 07/19/2020 09:14:42 07/18/19 21 07/19/2020 CBC hematocrit 48.1 % 37.5-5 1.0 Not Available [facility] ([facility]) [address] [facility] [place], [address], 07/19/2020 09:14:42 07/18/19 21 07/19/2020 CBC MCV 87 fL 79-97 Not Available [facility] ([facility]) [address] [facility] [place], [address], 07/19/2020 09:14:42 07/18/19 21 07/19/2020 CBC MCH 28.7 pg 26.6-3 3.0 Not Available [facility] ([facility]) [address] [facility] [place], [address], 07/19/2020 09:14:42 07/18/19 21 07/19/2020 CBC MCHC 33.1 g/dL 31.5-3 5.7 Not Available [facility] ([facility]) [address] [facility] [place], [address], 07/19/2020 09:14:42 07/18/19 21 07/19/2020 CBC RDW 12.5 % 11.6-1 5.4 Not Available [facility] ([facility]) [address] [place], [address], 07/19/2020 09:14:42 07/18/19 21 07/19/2020 CBC platelets 231 x10e3 /uL 150-45 0 Not Available [facility] ([facility]) [address] [facility] [place], [address], 07/19/2020 09:14:42 07/18/19 21 07/19/2020 CBC NRBC HANGAR ATTENDANT Not Available [facility] ([facility]) [address] [facility] [place], [address], 07/19/2020 09:14:42 07/18/19 21 07/19/2020 lipid panel , serum cholesterol, total 187 mg/dL 100-19 9 Not Available [facility] ([facility]) [address] [facility] [place], [address], 07/19/2020 09:14:43 07/18/19 21 07/19/2020 lipid panel , serum triglyceride s 163 mg/dL 0-149 above high normal Not Available [facility] ([facility]) [address] [facility] [place], [address], 07/19/2020 09:14:43 07/18/19 21 07/19/2020 lipid panel , serum HDL cholesterol 34 mg/dL >39 below low normal Not Available [facility] ([facility]) [address] [facility] [place], [address], 07/19/2020 09:14:43 07/18/19 21 07/19/2020 lipid panel , serum VLDL cholesterol clayton 29 mg/dL 5-40 Not Available [facility] ([facility]) [address] [facility] [place], [address], 07/19/2020 09:14:43 07/18/19 21 07/19/2020 lipid panel , serum LDL chol calc ([facility]) 124 mg/dL 0-99 above high normal Not Available [facility] ([facility]) [address] [facility] [place], [address], 07/19/2020 09:14:43 07/18/19 21 07/19/2020 lipid panel , serum comment: HANGAR ATTENDANT Not Available [facility] ([facility]) [address] [facility], [place], [address], 07/19/2020 09:14:43 07/18/1907/19/2020 cardi ovasc ular asses sment panel , serum interpretati on Note Medic al Direc tor's Note: Dorothy dominguez Last Name has been corre cted on 021, was NESLE R and now is BADOL KENNY. Pleas e revie w this repor t in its entir ety, since pierre es to dorothy dominguez demog raphi cs may affec t resul t inter preta tion( s) and/o r treat ment/ follo w-up sugge stion s. Suppl ement al repor t is avail able. Not Available [facility] ([facility]) [address] [facility], [place], [address], 07/19/2020 09:14:44 07/18/1907/19/2020 cardi ovasc ular asses sment panel , serum pdf . Not Available [facility] ([facility]) [address] [facility], [place], [address], 07/19/2020 09:14:44 06/14/1906/15/2024 LIPID PANEL cholesterol, total 139 mg/dL 100-19 9 Not Available [facility] [address] [place], [address], 06/15/2024 09:14:31 06/14/19 25 06/15/2024 LIPID PANEL triglyceride s 278 mg/dL 0-149 above high normal Not Available [facility] [address] [place], [address], 06/15/2024 09:14:31 06/14/19 25 06/15/2024 LIPID PANEL HDL cholesterol 26 mg/dL >39 below low normal Not Available [facility] [address] [place], [address], 06/15/2024 09:14:31 06/14/19 25 06/15/2024 LIPID PANEL VLDL cholesterol [place] 45 mg/dL 5-40 above high normal Not Available [address], [address], 06/15/2024 09:14:31 06/14/1906/15/2024 LIPID PANEL LDL chol calc ([facility]) 68 mg/dL 0-99 Not Available [address], [address], 06/15/2024 09:14:31 06/14/19 25 06/15/2024 COMP. METAB OLIC PANEL (14) glucose 108 mg/dL 70-99 above high normal Not Available [address], [address], 06/15/2024 09:14:33 06/14/1906/15/2024 COMP. METAB OLIC PANEL (14) BUN 14 mg/dL 6-24 Not Available [address], [address], 06/15/2024 09:14:33 06/14/1906/15/2024 COMP. METAB OLIC PANEL (14) creatinine 0.79 mg/dL 0.76-1 .27 Not Available [address], [address], 06/15/2024 09:14:33 06/14/1906/15/2024 COMP. METAB OLIC PANEL (14) eGFR 114 mL/mi n/1.7 3 >59 Not Available [address], [address], 06/15/2024 09:14:33 06/14/19 25 06/15/2024 COMP. METAB OLIC PANEL (14) BUN/creatini ne ratio 18 9-20 Not Available [address], [address], 06/15/2024 09:14:33 06/14/19 25 06/15/2024 COMP. METAB OLIC PANEL (14) sodium 142 mmol/ L 134-14 4 Not Available [address], [address], 06/15/2024 09:14:33 06/14/19 25 06/15/2024 COMP. METAB OLIC PANEL (14) potassium 4.1 mmol/ L 3.5-5. 2 Not Available [address], [address], 06/15/2024 09:14:33 06/14/19 25 06/15/2024 COMP. METAB OLIC PANEL (14) chloride 103 mmol/ L 96-106 Not Available [address], [address], 06/15/2024 09:14:33 06/14/19 25 06/15/2024 COMP. METAB OLIC PANEL (14) carbon dioxide, total 25 mmol/ L 20-29 Not Available [address], [address], 06/15/2024 09:14:33 06/14/19 25 06/15/2024 COMP. METAB OLIC PANEL (14) calcium 8.6 mg/dL 8.7-10 .2 below low normal Not Available [address], [address], 06/15/2024 09:14:33 06/14/19 25 06/15/2024 COMP. METAB OLIC PANEL (14) protein, total 6.6 g/dL 6.0-8. 5 Not Available [address], [address], 06/15/2024 09:14:33 06/14/19 25 06/15/2024 COMP. METAB OLIC PANEL (14) albumin 4.2 g/dL 4.1-5. 1 Not Available [address], [address], 06/15/2024 09:14:33 06/14/1906/15/2024 COMP. METAB OLIC PANEL (14) globulin, total 2.4 g/dL 1.5-4. 5 Not Available [address], [address], 06/15/2024 09:14:33 06/14/1906/15/2024 COMP. METAB OLIC PANEL (14) bilirubin, total 0.2 mg/dL 0.0-1. 2 Not Available [address], [address], 06/15/2024 09:14:33 06/14/1906/15/2024 COMP. METAB OLIC PANEL (14) alkaline phosphatase 71 IU/L 44-121 Not Available [address], [address], 06/15/2024 09:14:33 06/14/1906/15/2024 COMP. METAB OLIC PANEL (14) AST (SGOT) 28 IU/L 0-40 Not Available [address], [address], 06/15/2024 09:14:33 06/14/19 25 06/15/2024 COMP. METAB OLIC PANEL (14) ALT (SGPT) 31 IU/L 0-44 Not Available [address], [address], 06/15/2024 09:14:33 06/14/19 25 06/15/2024 CARDI OVASC ULAR REPOR T interpretati on Note Suppl rowan al ayan lauren is avail able. Not Available [address], [address], 06/15/2024 09:14:35 06/14/1906/15/2024 GOPAL Lauren pdf . Not Available [address], [address], 06/15/2024 09:14:35 06/14/1906/15/2024 CBC, PLATE LET, NO DIFFE RENTI AL WBC 5.5 x10e3 /uL 3.4-10 .8 Not Available [address], [address], 06/15/2024 09:14:35 06/14/1906/15/2024 CBC, PLATE LET, NO DIFFE RENTI AL RBC 5.10 x10e6 /uL 4.14-5 .80 Not Available [address], [address], 06/15/2024 09:14:35 06/14/1906/15/2024 CBC, PLATE LET, NO DIFFE RENTI AL hemoglobin 14.4 g/dL 13.0-1 7.7 Not Available [address], [address], 06/15/2024 09:14:35 06/14/1906/15/2024 CBC, PLATE LET, NO DIFFE RENTI AL hematocrit 44.8 % 37.5-5 1.0 Not Available [address], [address], 06/15/2024 09:14:35 06/14/1906/15/2024 CBC, PLATE LET, NO DIFFE RENTI AL MCV 88 fL 79-97 Not Available [address], [address], 06/15/2024 09:14:35 06/14/19 25 06/15/2024 CBC, PLATE LET, NO DIFFE RENTI AL MCH 28.2 pg 26.6-3 3.0 Not Available [address], [address], 06/15/2024 09:14:35 06/14/19 25 06/15/2024 CBC, PLATE LET, NO DIFFE RENTI AL MCHC 32.1 g/dL 31.5-3 5.7 Not Available [address], [address], 06/15/2024 09:14:35 06/14/19 25 06/15/2024 CBC, PLATE LET, NO DIFFE RENTI AL RDW 12.7 % 11.6-1 5.4 Not Available [address], [address], 06/15/2024 09:14:35 06/14/19 25 06/15/2024 CBC, PLATE LET, NO DIFFE RENTI AL platelets 237 x10e3 /uL 150-45 0 Not Available [address], [address], 06/15/2024 09:14:35 06/14/1906/14/2024 HbA1c (hemo globi n A1c), blood HbA1c 6.0 Not Available In-Office Order Internal Use Only DO Not Attach Compendium DO Not Attach Compendium, Do Not Delete/merge, [id number] 06/14/2024 11:22:27 06/14/19 25 06/14/2024 urina lysis , dipst ick Leukocytes Negati ve Not Available In-Office Order Internal Use Only DO Not Attach Compendium DO Not Attach Compendium, Do Not Delete/merge, [id number] 06/14/2024 11:06:29 06/14/19 25 06/14/2024 urina lysis , dipst ick Nitrite negati ve Not Available In-Office Order Internal Use Only DO Not Attach Compendium DO Not Attach Compendium, Do Not Delete/merge, 06/14/2024 11:06:29 06/14/1906/14/2024 urina lysis , dipst ick Urobilinogen .2 Not Available In-Of fice Order Internal Use Only DO Not Attach Compendium DO Not Attach Compendium, Do Not Delete/merge, 06/14/2024 11:06:29 06/14/1906/14/2024 urina lysis , dipst ick Protein Negati ve Not Available In-Office Order Internal Use Only DO Not Attach Compendium DO Not Attach Compendium, Do Not Delete/merge, 06/14/2024 11:06:29 06/14/1906/14/2024 urina lysis , dipst ick pH 6.0 [...] 06/14/2024 urina lysis , dipst ick Specific [place] 1.015 Not Available In-Off ice Order Internal [...] Attach Compendium, Do Not Delete/merge, 06/14/2024 11:06:29 06/14/1906/14/2024 urina lysis , dipst ick Appearance Clear Not Available In-Offi ce Order Internal Use Only DO Not Attach Compendium DO Not Attach Compendium, Do Not Delete/merge, 06/14/2024 11:06:29 06/14/1906/14/2024 urina lysis , dipst ick Color Yellow Not Available In-Office Order Internal Use Only DO Not Attach Compendium DO Not Attach Compendium, Do Not Delete/merge, 06/14/2024 11:06:29 07/23/19 25 07/23/2024 US, abdom en, compl ete No observ ation record ed. [facility] [address] [place], [address], 07/23/2024 14:05:10 08/14/19 25 08/13/2024 NM, hepat obili juliana scan, w/pha rm No observ ation [facility] ed[facility] [address] [place], [address], 08/14/2024 12:50:55 Result Notes None recorded. Problems Name Problem SNOMED Code Status Onset Date Resolution Date Notes Provider Name and Address Organization Details Recorded Time Melena due to gastrointestin al hemorrhage 142906241 Active Mariana Fried PA-C Attn: Accountin [facility],[address], [place], [address], [place] [facility] 6 15:14:32 Problem Notes None recorded. Procedures Surgical History None recorded. Imaging Results Imaging Date Name Status LastModified by Organization Details LastModified Time 07/23/2024 US, abdomen, complete completed [facility] [address] [place], [address], 07/23/2024 14:05:10 08/13/2024 NM, hepatobiliary scan, w/pharm completed [facility] [address] [place], [address], 08/14/2024 12:50:55 Procedure Notes None recorded. Medical Equipment None Reported. Allergies No known drug allergies Medications Name Sig Start Date Stop Date Status Note LastModified by Organization Details LastModified Time celecoxib 200 mg capsule Take 1 capsule every day by oral route for 90 days. 2024 active Not Available Not Available Not Avai lable ibuprofen 800 mg tablet 07/18 completed Not [...] completed Not Available Not Available Not Available pantoprazol e 40 mg tablet,yunier yed release Take 1 tablet every day by oral route for 90 days. 2024 active Not Available Not Available Not Avai lable Bactrim DS 800 mg-160 mg tablet Take [...] Updated DateTime 9 175.26 cm 38.1 kg/m2 992049. 83 g 97 % 97 % 79 /min 134 mm[Hg] 82 mm[Hg] Viki Moya [place] [facility] 9 15:02:50 Date Recorded Body height Body temperature Oxygen saturation Oxygen saturation in Arterial blood by Pulse oximetry Heart rate Systolic blood pressure Diastolic blood pressure Provider Name and Address Organization Details Last Updated DateTime 1 175.26 cm 97.7 [degF] 96 % 96 % 65 /min 96 mm[Hg] 72 mm[Hg] Avis Paez MA [facility] 1 12:10:00 Date Recorded Body weight Body mass index (BMI) Body height Oxygen saturation Oxygen saturation in Arterial blood by Pulse oximetry Heart rate Systolic blood pressure Diastolic blood pressure Provider Name and Address Organization Details Last Updated DateTime 5 497692. 12 g 38.3 kg/m2 175.26 cm 98 % 98 % 72 /min 119 mm[Hg] 80 mm[Hg] Jessica Dowd MA [facility] 5 11:06:02 Date Recorded Body height Body mass index (BMI) Body weight Oxygen saturation Oxygen saturation in Arterial blood by Pulse oximetry Heart rate Systolic blood pressure Diastolic blood pressure Provider Name and Address Organization Details Last Updated DateTime 5 175.26 cm 36.8 kg/m2 496017. 6 g 98 % 98 % 78 /min 122 mm[Hg] 92 mm[Hg] Jessica Dwod MA [facility] 5 12:00:50 Date Recorded Body height Body mass index (BMI) Body weight Oxygen saturation Oxygen saturation in Arterial blood by Pulse oximetry Heart rate Respiratory rate Systolic blood pressure Diastolic blood pressure Provider Name and Address Organization Details Last Updated DateTime 5 175.26 cm 37.7 kg/m2 588148. 05 g 97 % 97 % 84 /min 16 /min 151 mm[Hg] 95 mm[Hg] Vida Morales MA [facility] 5 10:42:21 Social History Question Answer Notes LastModified by Organizat ion Details LastModified Time Tobacco Smoking Status Former Smoker Jessica Dowd MA [facility] 06/14/2024 11:04:28 What Is Your Level Of Alcohol Consumption? Occasional Information not available 07/18/2020 What Is Your Level Of Caffeine Consumption? Moderate Information not available 07/18/2020 What Type Of Diet Are You Following? REGULAR Information not available 07/18/2020 Do You Or Have You Ever Used E-cigarettes Or Vape? Never Used Electronic Cigarettes Information not available 07/18/2020 What Is Your Occupation? [employer] Information not available 07/18/2020 Marital Status misty Informati on not available 07/18/2020 What Was The Date Of Your Most Recent Tobacco Screening? 08/31/2024 Information not available 08/31/2024 Do You Or Have You Ever Used Smokeless Tobacco? Never Used Smokeless Tobacco [email or web address] Information not available 07/18/2020 How Much Tobacco Do You Smoke? 0.25 PPD Information not available 10/06/2015 General Stress Level Medium [email or web address] Information not available 07/18/2020 On What Date Was Tobacco Cessation Counseling Provided? 08/31/2024 Information not available 08/31/2024 How Many Years Have You Smoked Tobacco? [...] Response Coronary Artery Disease N Other N Atrial Fibrillation N High Blood Pressure N Kidney or Bladder Problems N Thyroid Problems N GI Problems N Depression N COPD N Blood Clots N Skin Problems N Anemia N Heart Attack (DC) N Anxiety Disorder N Diabetes N Muscle, Joint, or Bone Problems N Seizures/Epilepsy N Acid Reflux (GERD) N Cancer N Stroke N Asthma N Allergies N High Cholesterol N Hepatitis N Liver Disease N Headaches N Heart Failure N Osteoporosis N Past Encounters Encounter ID Performer Location Encounter Start Date Encounter Closed Date Diagnosis/Indication Diagnosis SNOMED-CT Code Diagnosis ICD10 Code Diagnosis Note [id number] AVIVA Tavarez [facility] [address] [place] [address] 10/06/2015 14:14:38 10/06/2015 15:21:13 Melena due to gastrointestinal hemorrhage 533012546 K92.1 [id number] AVIVA Tavarez [facility] [address] [place] [address] 05/13/2017 10:02:40 05/13/2017 12:17:51 Urinary tract infectious disease 33431841 N39.0 Body mass index 30+ - obesity 023516485 Z68.39 [id number] Mariana Fried PA-C [facility] [address] [place] [address] 05/31/2017 10:10:51 05/31/2017 12:30:16 [id number] Faye Laboy MA [facility] [address] [place] [address] 06/28/2018 14:39:03 06/28/2018 16:09:54 Headache associated with sexual activity 745542392 G44.82 Cellulitis and abscess of trunk 409672856 L02.911 [id number] Mariana Fried PA-C [facility] [facility] [address] [place] [address] 07/18/2020 11:56:37 07/18/2020 15:26:32 Pain of right shoulder joint [id number] M25.511 Pilonidal cyst [id number] L05.91 Atypical chest pain 1025 15172 R07.89 [id number] Mariana Fried PA-C [facility] [address] [place] [address] 06/14/2024 10:57:25 06/18/2024 08:24:38 Increased frequency of urination [id number] R35.0 Right uppe r quadrant pain [id number] R10.11 Strain of abdominal muscle [id number] S39.011A [facility] [id number] E66 .3 [id number] Mariana Fried PA-C [facility] [address] [place] [address] 06/25/2024 11:40:08 06/28/2024 16:21:09 Right upper quadrant pain [id number] R10.11 Hepatosplenomegaly 06899 000 R16.2 [id number] Mariana Fried PA-C [facility] [address] [place] [address] 08/31/2024 10:34:48 08/31/2024 11:11:37 Right upper quadrant pain [id number] R10.11 Pain of ri ght shoulder joint [id number] M25.511 Health Concerns Section Related Observation LastModified by Organization Detai ls LastModified Time None Recorded Concern Status LastModified by Organization Details LastModified Time None Recorded Advance Directives Directive None Recorded Payers Encounter Date Sequence Insurance Name Policy Number Policy Sebastian Covered Member ID Sebastian Member ID Guarantor Name 06/28/2018 1 [place] [id number] Loc Leon [id number] [facility] 07/18/2020 1 [place] [id number] Loc Leon [id number] [facility] 06/14/2024 1 [employer] - OPEN ACCESS PLUS [id number] Sd Bergto [id number] [facility] 06/25/2024 1 [employer] - OPEN ACCESS PLUS [id number] Sd Bergto [id number] [facility] 08/31/2024 1 [employer] - OPEN ACCESS PLUS [id number] Sd Bergto [id number] [facility] Notes Date Note Type Note Provider Name and Address Organization Details Recorded Time 06/28/2018 text/html Headaches during sex started about [...] of STD or possible exposure. A[place], [place] - [facility] 06/28/2018 16:06:17 07/18/2020 text/html Patient has been [...] never fully resolved.Father has a history of DC at 62 y/o and had 4-5 stents placed. Mariana Fried PA-C Attn: [employer],[address] [place], [address], 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, [place], [address], [facility] 06/14/2024 11:43:07 06/25/2024 text/html RUQ pain persist s especially with direct pressure..not improving...no food impact... Mariana Fried PA-C Attn: Accounting[address] [facility] [place], [place], [address], [facility] 06/25/2024 12:10:51 08/31/2024 text/html rt shoulder pain and abdominal pain follow up...ER said gallbladder isnt bad.. Mariana Fried PA-C Attn: Accounting,[address] [facility], [place], [place], [address], [facility] 08/31/2024 11:11:34
== END 2024-09-03 10:56 | disposition home or self-care (01) ==
LOC: CHSIMG 10:57
PROVIDERS: PCP Physician Assistant; Visit Provider Physician Assistant
DX: M25.511 Pain in right shoulder (principal); M19.011 Primary osteoarthritis, right shoulder
CPT/HCPCS: 73030

== ENCOUNTER 2025-04-06 11:05 | Outpatient (CLI) | payer OTHER, SELFPAY ==
--- NOTE | ~2025-04-06 | MR_ITS ---
EXAMINATION: MR shoulder RT wo con DATE: 04/06/2025 12:05 INDICATION: Right shoulder pain and limited range of motion TECHNIQUE: Magnetic resonance imaging (MRI) of the right shoulder was performed without intravenous contrast. Sequences included axial PD-weighted FS FSE, coronal oblique PD-weighted FS FSE, coronal oblique T2-weighted FS FSE, sagittal PD-weighted FS FSE, and sagittal T1-weighted SE. COMPARISON: None. FINDINGS: Evaluation mildly limited by motion artifact blurring on multiple sequences. Coracoacromial arch: The acromion undersurface is flat in morphology (type I). The coracoacromial ligament is normal. Moderate acromioclavicular osteoarthritis with small inferiorly directed osteophytes which exerts mass effect upon the anterior margin of the supraspinatus tendon. Rotator cuff: Mild supraspinatus and infraspinatus tendinopathy. There is a full-thickness tear of the supraspinatus and anterior portion of the conjoined portion of the supraspinatus and infraspinatus tendons which measures 2.2 cm AP and 2.0 cm medial to lateral. There is attenuation extending 2 cm more medially along the retracted tear margin with prominent medial side retraction of the articular sided portion of the tendon. There is also articular sided tearing extending an additional 1 cm more posteriorly along the middle facet footplate of the infraspinatus tendon. Mild subscapularis tendinopathy without tear. The teres minor tendon is normal. Normal rotator cuff muscle bulk and signal. Biceps tendon, glenoid labrum and glenohumeral cartilage: Long head of the biceps tendon is normal. Glenoid labrum is normal. Mild partial-thickness cartilage loss with smooth chondral surface along the cephalad half of the glenoid and along the superomedial aspect of the humeral head. Fluid: Small glenohumeral joint effusion which extends through the full-thickness rotator cuff tear to communicate with a small amount of fluid in the subacromial/subdeltoid bursa. No loose osteochondral bodies. Bones: No fracture or pathologic marrow replacing process. Cystic change along the middle facet of the greater tuberosity related to chronic rotator cuff disease. IMPRESSION: 1. Full-thickness rotator cuff tear extending 2.2 cm AP and 2 cm medial collateral along the entire supraspinatus and anterior portion of the infraspinatus tendon. 2. Mild glenohumeral osteoarthritis and moderate acromioclavicular osteoarthritis. Reviewed, dictated and finalized at location A. IMPRESSION: 1. Full-thickness rotator cuff tear extending 2.2 cm AP and 2 cm medial collate ral along the entire supraspinatus and anterior portion of the infraspinatus te ndon. 2. Mild glenohumeral osteoarthritis and moderate acromioclavicular osteoarthrit is.
== END 2025-04-06 11:06 | disposition home or self-care (01) ==
LOC: CHSIMG 11:07
PROVIDERS: PCP Physician Assistant; Visit Provider Physician Assistant
DX: M25.511 Pain in right shoulder (principal); S46.011A Strain of muscle(s) and tendon(s) of the rotator cuff of right shoulder, initial encounter; M19.011 Primary osteoarthritis, right shoulder
CPT/HCPCS: 73221